=== PATIENT | female | born 1985 | race Caucasian/White ===

== ENCOUNTER 2018-07-27 13:18 | Emergency (ER) | payer OTHER ==
[~2018-07-27] VITALS: Ht 165.1 cm; Wt 104.0 kg
[~2018-07-27 13:18] MED LIST: ONDA4TAB12 PO
[2018-07-27] MEDS ORDERED: ipratropium/albuterol 3ml nebule NEB ONE (13:50)
[2018-07-27] MEDS ORDERED: CefTRIAXone 2gm/D5W 50ml 50 ML IV ONE (13:55)
[2018-07-27] MEDS ORDERED: normal saline 1000ML IV soln IV ONE (13:55)
[2018-07-27] MEDS ORDERED: AZIT-72 PO (14:23)
[2018-07-27] MEDS ORDERED: AMOX-422 PO (14:23)
[2018-07-27 14:27] LABS: BASOPHILS # (AUTO) 0.1 X10'3 (0-0.2); BASOPHILS % (AUTO) 0.5 % (0-1); EOSINOPHILS # (AUTO) 0.1 X10'3 (0-0.9); EOSINOPHILS % (AUTO) 0.9 % (0-6); HEMATOCRIT 39.3 % (35.0-45.0); HEMOGLOBIN 13.5 g/dl (12.0-16.0); LYMPHOCYTES # (AUTO) 0.9 X10'3 (1.1-4.8); LYMPHOCYTES % (AUTO) 6.9 % (21-51); MEAN CORPUSCULAR HEMOGLOBIN 30.6 PG (27.0-31.0); MEAN CORPUSCULAR HGB CONC 34.3 g/dL (33.0-36.5); MEAN PLATELET VOLUME 8.7 FL (7.4-10.4); MONOCYTES # (AUTO) 0.7 X10'3 (0-0.9); NEUTROPHILS # (AUTO) 11.7 X10'3 (1.8-7.7); NEUTROPHILS % (AUTO) 86.7 % (42-75); PLATELET COUNT 222 X10'3 (140-440); RED BLOOD COUNT 4.42 X10'6 (4.20-5.60); RED CELL DISTRIBUTION WIDTH 12.1 % (11.5-14.5); WHITE BLOOD COUNT 13.5 X10'3 (4.5-11.0)
--- NOTE | 2018-07-27 15:00 | NUR ---
pt has some hives on abdomen and lower extremities after the administration of abx. notified ADELAIDA Thompson. administred benedryl and solumedrol.
[2018-07-27] MEDS ORDERED: diphenhydrAMINE 50 mg/ml inj IV ONE (15:10)
[2018-07-27] MEDS ORDERED: methylPREDNISolone sod succ 125mg/2ml vial IV ONE (15:10)
[2018-07-27] MEDS ORDERED: acetaminophen 325mg tablet PO ONE (15:30)
[2018-07-27 16:26] VITALS: BP 135/82
== END 2018-07-27 16:28 | disposition home or self-care (01) ==
LOC: ER 13:19
DX: R05 Cough (principal); J45.909 Unspecified asthma, uncomplicated; Z88.1 Allergy status to other antibiotic agents; Z87.01 Personal history of pneumonia (recurrent)
CPT/HCPCS: 36415; 71045; 83605; 84145; 85025; 87040; 93005; 94640; 94760; 96365; 96375; 99284; J0696; J1200; J2930; J7030

== ENCOUNTER 2019-03-29 23:06 | Emergency (ER) | payer BC, OTHER ==
[~2019-03-29] VITALS: Ht 165.1 cm; Wt 104.0 kg
[2019-03-29] MEDS ORDERED: normal saline 1000ML IV soln IVB ONE (23:30)
--- NOTE | 2019-03-29 23:37 | NUR ---
PT IS RESTING QUIETLY ON GUSEBAS, FAMILY AT BEDSIDE, LABS HAVE BEEN DRAWN, 1 LITER NS INFUSING W/O, IV TO RT AC IS PATENT AND CLEAR
--- NOTE | 2019-03-29 23:56 | NUR ---
pt to CT
[2019-03-29 23:57] LABS: BASOPHILS # (AUTO) 0.1 X10'3 (0-0.2); BASOPHILS % (AUTO) 1.2 % (0-1); EOSINOPHILS # (AUTO) 0.8 X10'3 (0-0.9); EOSINOPHILS % (AUTO) 8.6 % (0-6); HEMATOCRIT 37.9 % (35.0-45.0); HEMOGLOBIN 13.5 g/dl (12.0-16.0); LYMPHOCYTES # (AUTO) 2.6 X10'3 (1.1-4.8); LYMPHOCYTES % (AUTO) 28.9 % (21-51); MEAN CORPUSCULAR HEMOGLOBIN 32.4 PG (27.0-31.0); MEAN CORPUSCULAR HGB CONC 35.5 g/dL (33.0-36.5); MEAN CORPUSCULAR VOLUME 91.3 FL (78-98); MEAN PLATELET VOLUME 8.8 FL (7.4-10.4); MONOCYTES # (AUTO) 0.5 X10'3 (0-0.9); MONOCYTES % (AUTO) 5.9 % (2-12); NEUTROPHILS # (AUTO) 4.9 X10'3 (1.8-7.7); NEUTROPHILS % (AUTO) 55.4 % (42-75); PLATELET COUNT 222 X10'3 (140-440); RED BLOOD COUNT 4.16 X10'6 (4.20-5.60); WHITE BLOOD COUNT 8.9 X10'3 (4.5-11.0)
[2019-03-30] LABS: ALANINE AMINOTRANSFERASE 19 U/L (12-78); ALBUMIN 3.5 G/DL (3.4-5.0); ALKALINE PHOSPHATASE 64 IU/L (46-116); ANION GAP 6 (8-16); ASPARTATE AMINO TRANSFERASE 15 U/L (10-37); BILIRUBIN,TOTAL 0.2 MG/DL (0.1-1.0); BLOOD UREA NITROGEN 13 MG/DL (7-18); BUN/CREATININE RATIO 17.3 (6.6-38.0); CALCIUM 8.9 MG/DL (8.5-10.1); CHLORIDE 106 MMOL/L (99-107); CREATININE 0.75 MG/DL (0.40-0.90); GLUCOSE 105 MG/DL (70-104); POTASSIUM 3.9 MMOL/L (3.5-5.1); SODIUM 139 MMOL/L (135-145); eGFR 87 ML/MIN
--- NOTE | 2019-03-30 00:31 | NUR ---
pt is resting quietly on gurney, c/o headache 01/07, asking for toradol
[2019-03-30] MEDS ORDERED: ketorolac trometh. 30mg/ml inj. IV ONE (00:35)
[2019-03-30] MEDS ORDERED: proCHLORperazine 10 MG/2 ml inj IV PRN (00:35)
[2019-03-30] MEDS ORDERED: diphenhydrAMINE 50 mg/ml inj IV ONE (00:35)
[2019-03-30 01:15] VITALS: BP 124/72
== END 2019-03-30 01:10 | disposition home or self-care (01) ==
LOC: ER 23:07
DX: R55 Syncope and collapse (principal); J45.909 Unspecified asthma, uncomplicated; G43.909 Migraine, unspecified, not intractable, without status migrainosus; Z88.1 Allergy status to other antibiotic agents; Z91.018 Allergy to other foods; Z79.899 Other long term (current) drug therapy
CPT/HCPCS: 36415; 70450; 71045; 80053; 83735; 84484; 85025; 93005; 96361; 96374; 96375; 99284; J0780; J1200; J1885; J7030